=== PATIENT | female | born 1980 | race Caucasian/White ===

== ENCOUNTER 2017-06-12 19:04 | Emergency (ER) | payer SELFPAY ==
[~2017-06-12] VITALS: Ht 170.2 cm; Wt 61.9 kg
[2017-06-12 19:59] LABS: HEMATOCRIT 36.4 % (36.0-46.0); HEMOGLOBIN 11.7 G/DL (11.9-15.5); MCH 24.2 PG (29.0-34.0); MCHC 32.1 G/DL (30.0-36.0); MCV 75.4 FL (83-99); PLATELET COUNT 276 K/uL (156-360); RBC DIS.WIDTH-CV 15.6 % (11.8-14.6); RBC DIS.WIDTH-SD 42.4 % (39-53); RED BLOOD COUNT 4.83 M/uL (3.80-5.20); WHITE BLOOD COUNT 7.3 K/uL (4.1-10.2)
[2017-06-12 20:09] LABS: ALBUMIN 4.5 g/dL (3.2-4.8)
[2017-06-12 20:10] LABS: CHLORIDE 105 mEq/L (99-109); POTASSIUM 3.6 mEq/L (3.7-5.4); SODIUM 137 mEq/L (136-147)
[2017-06-12 20:12] LABS: GLUCOSE 91 mg/dL (70-99); TOTAL PROTEIN 7.6 g/dL (6.4-8.3)
[2017-06-12 20:14] LABS: TOTAL BILIRUBIN 0.3 mg/dL (0.0-1.0)
[2017-06-12 20:15] LABS: ALKALINE PHOSPHATASE 78 IU/L (3-129)
[2017-06-12 20:16] LABS: CREATININE 0.8 mg/dL (0.6-1.3); GFR ESTIMATE (CALCULATED) > 59 mL/min/
[2017-06-12 20:17] LABS: AST (GOT) 11 IU/L (2-34); UREA NITROGEN (BUN) 11 mg/dL (9-23)
[2017-06-12 20:18] LABS: ALT (GPT) 7 IU/L (3-49)
[2017-06-12 20:19] LABS: LIPASE 34 U/L (1.0-51.0)
[2017-06-12 20:25] LABS: QUANTITATIVE HCG < 4.0 MIU/ML
[2017-06-12 22:04] LABS: APPEARANCE SL.HAZY ((CLEAR)); BILIRUBIN NEGATIVE; BLOOD NEGATIVE; COLOR YELLOW ((YELLOW)); GLUCOSE (STRIP) NEGATIVE; KETONES NEGATIVE; LEUKOCYTES TRACE; NITRITE NEGATIVE; PROTEIN (STRIP) NEGATIVE; UROBILINOGEN 0.2 MG/DL (0.2-1.0)
[2017-06-12 22:07] LABS: BACTERIA RARE /HPF; EPITHELIAL CELLS 2+ /HPF; MUCUS TRACE /LPF; RED BLOOD CELLS 0-5 /HPF (0-5); UCUL ADDED? NO; WHITE BLOOD CELLS 0-5 /HPF (0-5)
[2017-06-12] MEDS ORDERED: PEPCID20 MG PO (22:12)
[2017-06-12] MEDS ORDERED: ZOFRAN4 MG PO (22:12)
[2017-06-12 22:28] VITALS: BP 155/78
== END 2017-06-12 22:30 | disposition home or self-care (01) ==
LOC: EME 19:04
PROVIDERS: Physician Assistant
DX: R10.11 Right upper quadrant pain (principal); F17.200 Nicotine dependence, unspecified, uncomplicated; Z98.51 Tubal ligation status; Z90.49 Acquired absence of other specified parts of digestive tract
CPT/HCPCS: 76705; 80053; 81003; 83690; 84702; 85027; 99281; 99284

== ENCOUNTER 2017-06-13 21:59 | Emergency (ER) | payer OTHER ==
[~2017-06-13] VITALS: Ht 170.2 cm; Wt 62.4 kg
[~2017-06-13 21:59] MED LIST: PEPCID20 MG PO; ZOFRAN4 MG PO
[2017-06-13 22:18] LABS: APPEARANCE SL.HAZY ((CLEAR)); BILIRUBIN NEGATIVE; BLOOD NEGATIVE; COLOR YELLOW ((YELLOW)); GLUCOSE (STRIP) NEGATIVE; KETONES NEGATIVE; LEUKOCYTES SMALL; NITRITE NEGATIVE; PROTEIN (STRIP) NEGATIVE; SPECIFIC GRAVITY 1.014 (1.000-1.030)
[2017-06-13 22:26] LABS: BACTERIA RARE /HPF; EPITHELIAL CELLS 3+ /HPF; MUCUS TRACE /LPF; RED BLOOD CELLS 0-5 /HPF (0-5); UCUL ADDED? YES
[2017-06-13 22:51] LABS: HEMATOCRIT 34.5 % (36.0-46.0); MCH 24.1 PG (29.0-34.0); MCHC 31.9 G/DL (30.0-36.0); MCV 75.5 FL (83-99); PLATELET COUNT 270 K/uL (156-360); RBC DIS.WIDTH-CV 15.5 % (11.8-14.6); RBC DIS.WIDTH-SD 42.3 % (39-53); RED BLOOD COUNT 4.57 M/uL (3.80-5.20); WHITE BLOOD COUNT 7.5 K/uL (4.1-10.2)
[2017-06-13 23:03] LABS: ALBUMIN 4.4 g/dL (3.2-4.8); CHLORIDE 106 mEq/L (99-109); POTASSIUM 3.8 mEq/L (3.7-5.4); SODIUM 138 mEq/L (136-147)
[2017-06-13 23:05] LABS: GLUCOSE 105 mg/dL (70-99); TOTAL PROTEIN 7.3 g/dL (6.4-8.3)
[2017-06-13 23:07] LABS: TOTAL BILIRUBIN 0.2 mg/dL (0.0-1.0)
[2017-06-13 23:09] LABS: ALKALINE PHOSPHATASE 74 IU/L (3-129); CREATININE 0.7 mg/dL (0.6-1.3); GFR ESTIMATE (CALCULATED) > 59 mL/min/
[2017-06-13 23:10] LABS: UREA NITROGEN (BUN) 10 mg/dL (9-23)
[2017-06-13 23:11] LABS: AST (GOT) 15 IU/L (2-34)
[2017-06-13 23:12] LABS: ALT (GPT) 9 IU/L (3-49)
[2017-06-13 23:18] LABS: QUANTITATIVE HCG < 4.0 MIU/ML
[2017-06-14] MEDS ORDERED: PYRIDIUM200 MG PO (00:27)
[2017-06-14] MEDS ORDERED: KEFLEX500 MG PO ×2 (00:27→01:48)
[2017-06-14 02:17] VITALS: BP 115/75
== END 2017-06-14 02:18 | disposition home or self-care (01) ==
LOC: EME 21:59
PROVIDERS: Physician Assistant Medical
DX: N12 Tubulo-interstitial nephritis, not specified as acute or chronic (principal); F17.200 Nicotine dependence, unspecified, uncomplicated
CPT/HCPCS: 74177; 80053; 81003; 81025; 84702; 85027; 87086; 99281; 99285; J0696; J2270; J7030

== ENCOUNTER 2017-06-22 00:31 | Emergency (ER) | payer OTHER ==
[~2017-06-22] VITALS: Ht 170.2 cm; Wt 61.9 kg
[~2017-06-22 00:31] MED LIST changes: +KEFLEX500 MG PO; +PYRIDIUM200 MG PO
[2017-06-22 01:08] LABS: APPEARANCE SL.HAZY ((CLEAR)); BILIRUBIN NEGATIVE; BLOOD NEGATIVE; COLOR YELLOW ((YELLOW)); GLUCOSE (STRIP) NEGATIVE; KETONES 5; LEUKOCYTES TRACE; NITRITE NEGATIVE; PROTEIN (STRIP) 30; SPECIFIC GRAVITY 1.034 (1.000-1.030); UROBILINOGEN 0.2 MG/DL (0.2-1.0)
[2017-06-22 01:12] LABS: HEMATOCRIT 36.7 % (36.0-46.0); HEMOGLOBIN 11.7 G/DL (11.9-15.5); MCH 24.3 PG (29.0-34.0); MCHC 31.9 G/DL (30.0-36.0); MCV 76.1 FL (83-99); PLATELET COUNT 237 K/uL (156-360); RBC DIS.WIDTH-CV 15.9 % (11.8-14.6); RBC DIS.WIDTH-SD 43.8 % (39-53); RED BLOOD COUNT 4.82 M/uL (3.80-5.20); WHITE BLOOD COUNT 7.9 K/uL (4.1-10.2)
[2017-06-22 01:16] LABS: BACTERIA RARE /HPF; EPITHELIAL CELLS 2+ /HPF; MUCUS 4+ /LPF; RED BLOOD CELLS 0-5 /HPF (0-5); UCUL ADDED? NO; WHITE BLOOD CELLS 0-5 /HPF (0-5)
[2017-06-22 01:24] LABS: ALBUMIN 4.6 g/dL (3.2-4.8); CHLORIDE 107 mEq/L (99-109); POTASSIUM 3.7 mEq/L (3.7-5.4); SODIUM 139 mEq/L (136-147)
[2017-06-22 01:26] LABS: GLUCOSE 97 mg/dL (70-99); TOTAL PROTEIN 7.8 g/dL (6.4-8.3)
[2017-06-22 01:28] LABS: TOTAL BILIRUBIN 0.2 mg/dL (0.0-1.0)
[2017-06-22 01:30] LABS: ALKALINE PHOSPHATASE 83 IU/L (3-129); CREATININE 0.8 mg/dL (0.6-1.3); GFR ESTIMATE (CALCULATED) > 59 mL/min/
[2017-06-22 01:31] LABS: AST (GOT) 16 IU/L (2-34); UREA NITROGEN (BUN) 11 mg/dL (9-23)
[2017-06-22 01:33] LABS: ALT (GPT) 12 IU/L (3-49); LIPASE 45 U/L (1.0-51.0)
[2017-06-22 01:39] LABS: QUANTITATIVE HCG < 4.0 MIU/ML
[2017-06-22] MEDS ORDERED: CARAFATE1 GM PO (05:42)
[2017-06-22] MEDS ORDERED: KEFLEX500 MG PO (05:42)
[2017-06-22 06:01] VITALS: BP 98/74
== END 2017-06-22 06:01 | disposition home or self-care (01) ==
LOC: EME 00:31
DX: N39.0 Urinary tract infection, site not specified (principal); R10.10 Upper abdominal pain, unspecified; R19.7 Diarrhea, unspecified; Z98.51 Tubal ligation status; F17.200 Nicotine dependence, unspecified, uncomplicated
CPT/HCPCS: 80053; 81003; 83690; 84702; 85027; 99281; 99284

== ENCOUNTER 2017-08-08 21:42 | Emergency (ER) | payer OTHER ==
[~2017-08-08] VITALS: Ht 170.2 cm; Wt 66.2 kg
[~2017-08-08 21:42] MED LIST changes: +CARAFATE1 GM PO
[2017-08-08] MEDS ORDERED: NORCO 5/3251 TABLET PO (23:39)
[2017-08-08] MEDS ORDERED: FLEXERIL10 MG PO (23:39)
[2017-08-09 00:09] VITALS: BP 154/91
== END 2017-08-09 00:11 | disposition home or self-care (01) ==
LOC: EME 21:42
DX: M54.5 Low back pain (principal); S40.011A Contusion of right shoulder, initial encounter; W10.9XXA Fall (on) (from) unspecified stairs and steps, initial encounter; Y92.009 Unspecified place in unspecified non-institutional (private) residence as the place of occurrence of the external cause; F17.200 Nicotine dependence, unspecified, uncomplicated; Z90.49 Acquired absence of other specified parts of digestive tract; Z98.51 Tubal ligation status
CPT/HCPCS: 72100; 73030; 99281; 99283

== ENCOUNTER 2017-08-13 10:45 | Emergency (ER) | payer OTHER ==
[~2017-08-13] VITALS: Ht 170.2 cm; Wt 66.5 kg
[~2017-08-13 10:45] MED LIST changes: +FLEXERIL10 MG PO; +NORCO 5/3251 TABLET PO
[2017-08-13] MEDS ORDERED: LIDODERM 5% P1 PATCH TD (12:21)
[2017-08-13 12:45] VITALS: BP 103/59
== END 2017-08-13 12:47 | disposition home or self-care (01) ==
LOC: EME 10:45
DX: M25.511 Pain in right shoulder (principal); R20.0 Anesthesia of skin; W10.9XXA Fall (on) (from) unspecified stairs and steps, initial encounter; F17.200 Nicotine dependence, unspecified, uncomplicated
CPT/HCPCS: 99281; 99283

== ENCOUNTER 2017-08-16 10:01 | Emergency (ER) | payer OTHER ==
[~2017-08-16] VITALS: Ht 170.2 cm; Wt 68.0 kg
[~2017-08-16 10:01] MED LIST changes: +LIDODERM 5% P1 PATCH TD
[2017-08-16 10:04] VITALS: BP 116/84
[2017-08-16] MEDS ORDERED: SILVADENE20 GM TP (12:08)
== END 2017-08-16 12:29 | disposition home or self-care (01) ==
LOC: EME 10:01
DX: T23.121A Burn of first degree of single right finger (nail) except thumb, initial encounter (principal); X15.0XXA Contact with hot stove (kitchen), initial encounter; Y99.0 Civilian activity done for income or pay; F17.200 Nicotine dependence, unspecified, uncomplicated
CPT/HCPCS: 99281; 99284